=== PATIENT | male | born 1995 | race Caucasian/White ===

== ENCOUNTER 2017-01-28 23:19 | Emergency (ER) | payer OTHER ==
[~2017-01-28] VITALS: Ht 167.6 cm; Wt 100.0 kg
[~2017-01-28 23:19] MED LIST: DIVA500T35 PO; PALI234D IM
[2017-01-29] MEDS ORDERED: BUPIVACAINE HCL/PF 0.25% 10 ML VIAL INJ ONE (03:00)
[2017-01-29] MEDS ORDERED: BACITRACIN 0.9 GM PACKET OINTMENT TP ONE (03:00)
[2017-01-29 03:04] VITALS: BP 109/62
== END 2017-01-29 04:11 | disposition home or self-care (01) ==
LOC: EMS 23:21
DX: S01.111A Laceration without foreign body of right eyelid and periocular area, initial encounter (principal); F20.0 Paranoid schizophrenia; R45.851 Suicidal ideations; Z88.8 Allergy status to other drugs, medicaments and biological substances; Y08.09XA Assault by strike by other specified type of sport equipment, initial encounter; Y92.89 Other specified places as the place of occurrence of the external cause; Y93.89 Activity, other specified; Y99.8 Other external cause status
CPT/HCPCS: 12013; 99284; J3490

== ENCOUNTER 2017-03-17 21:34 | Emergency (ER) | payer OTHER ==
[~2017-03-17] VITALS: Ht 165.1 cm; Wt 102.3 kg
[2017-03-17 22:19] LABS: BASOPHILS # (AUTO) 0.08 K/uL (0.00-0.20); BASOPHILS % (AUTO) 0.6 % (0.0-2.0); EOSINOPHILS % (AUTO) 1.62 % (1.0-6.0); HEMATOCRIT 48.5 % (41-53); HEMOGLOBIN 16.1 g/dL (13.5-17.5); LYMPHOCYTES # (AUTO) 1.7 K/uL (1.0-4.8); LYMPHOCYTES % (AUTO) 13.9 % (22.0-44.0); MEAN CORPUSCULAR HEMOGLOBIN 29.7 pg (26.0-34.0); MEAN CORPUSCULAR HGB CONC 33.2 G/dL (31.0-37.0); MEAN CORPUSCULAR VOLUME 89 fL (80-100); MONOCYTES # (AUTO) 0.7 K/uL (0.1-1.0); MONOCYTES % (AUTO) 5.3 % (2.0-9.0); NEUTROPHILS # (AUTO) 9.6 K/uL (1.8-7.7); NEUTROPHILS % (AUTO) 78.5 % (40.0-70.0); PLATELET COUNT (AUTO) 210 K/uL (150-450); RED BLOOD CELL COUNT(AUTO) 5.42 MIL/uL (4.50-5.90); RED CELL DISTRIBUTION WIDTH 14.1 % (11.5-14.5)
[2017-03-17 22:36] LABS: ANION GAP 9 mmol/L (8-16); CALCIUM, TOTAL 9.3 mg/dL (8.8-10.5); CARBON DIOXIDE 26 mmol/L (22-29); CHLORIDE 103 mmol/L (98-107); GLOMERULAR FILTR. RATE CALC > 60 mL/min (>60); GLUCOSE,RANDOM 104 mg/dL (70-110); POTASSIUM 4.2 mmol/L (3.5-5.1); SODIUM SERUM 138 mmol/L (136-145); UREA NITROGEN, BLOOD 13 mg/dL (7-18)
[2017-03-17 22:45] LABS: ALANINE AMINOTRANSFERASE 31 U/L (12-78); ALBUMIN 4.3 g/dL (3.4-5.0); ALKALINE PHOSPHATASE 75 U/L (46-116); ASPARTATE AMINOTRANSFERASE 20 U/L (15-37); BILIRUBIN,TOTAL 0.4 mg/dL (0.1-1.0); TOTAL PROTEIN, SERUM 7.9 g/dL (6.4-8.2)
[2017-03-17] MEDS ORDERED: HALOPERIDOL LACTATE 5 MG/ML VIAL IM ONE (22:45)
[2017-03-17 22:59] LABS: VALPROIC ACID 54 mcg/mL (50-100)
[2017-03-17 23:58] LABS: AMPHET/METH SCREEN,URINE NEGATIVE (NEGATIVE); BARBITURATE SCREEN, URINE NEGATIVE (NEGATIVE); BENZODIAZEPINES SCREEN,URINE NEGATIVE (NEGATIVE); CANNABINOID SCREEN,URINE POSITIVE (NEGATIVE); COCAINE SCREEN,URINE NEGATIVE (NEGATIVE); METHADONE SCREEN, URINE NEGATIVE (NEGATIVE); OPIATE SCREEN,URINE NEGATIVE (NEGATIVE)
[2017-03-18] LABS: PHENCYCLIDINE SCREEN,URINE NEGATIVE (NEGATIVE)
[2017-03-18 01:30] VITALS: BP 121/81
== END 2017-03-18 01:55 | disposition home or self-care (01) ==
LOC: EMS 21:36
DX: F20.9 Schizophrenia, unspecified (principal); M25.562 Pain in left knee; F12.10 Cannabis abuse, uncomplicated; Z88.8 Allergy status to other drugs, medicaments and biological substances
CPT/HCPCS: 36415; 73560; 80053; 80164; 80307; 85025; 96372; 99285; G0480; J0690; J1630

== ENCOUNTER 2017-04-09 10:02 | Inpatient (IN) | payer OTHER, MEDICAID ==
[~2017-04-09] VITALS: Ht 167.6 cm; Wt 95.9 kg
[2017-04-09] MEDS ORDERED: LITH300C3 PO (10:16)
[2017-04-09 10:36] LABS: BASOPHILS # (AUTO) 0.12 K/uL (0.00-0.20); BASOPHILS % (AUTO) 1.2 % (0.0-2.0); EOSINOPHILS # (AUTO) 0.07 K/uL (0.00-0.70); EOSINOPHILS % (AUTO) 0.75 % (1.0-6.0); HEMATOCRIT 50.3 % (41-53); HEMOGLOBIN 16.8 g/dL (13.5-17.5); LYMPHOCYTES % (AUTO) 19.9 % (22.0-44.0); MEAN CORPUSCULAR HEMOGLOBIN 29.6 pg (26.0-34.0); MEAN CORPUSCULAR HGB CONC 33.4 G/dL (31.0-37.0); MEAN CORPUSCULAR VOLUME 89 fL (80-100); MONOCYTES # (AUTO) 0.5 K/uL (0.1-1.0); NEUTROPHILS # (AUTO) 7.2 K/uL (1.8-7.7); NEUTROPHILS % (AUTO) 73.1 % (40.0-70.0); PLATELET COUNT (AUTO) 263 K/uL (150-450); RED BLOOD CELL COUNT(AUTO) 5.68 MIL/uL (4.50-5.90); RED CELL DISTRIBUTION WIDTH 13.6 % (11.5-14.5); WHITE BLOOD COUNT (AUTO) 9.9 K/uL (4.5-11.0)
[2017-04-09 10:54] LABS: ANION GAP 10 mmol/L (8-16); CALCIUM, TOTAL 9.5 mg/dL (8.8-10.5); CARBON DIOXIDE 26 mmol/L (22-29); CHLORIDE 102 mmol/L (98-107); CREATININE 0.97 mg/dL (0.60-1.30); GLOMERULAR FILTR. RATE CALC > 60 mL/min (>60); POTASSIUM 3.5 mmol/L (3.5-5.1); SODIUM SERUM 138 mmol/L (136-145); UREA NITROGEN, BLOOD 8 mg/dL (7-18)
[2017-04-09 10:59] LABS: ALANINE AMINOTRANSFERASE 34 U/L (12-78); ALBUMIN 4.3 g/dL (3.4-5.0); ASPARTATE AMINOTRANSFERASE 22 U/L (15-37); BILIRUBIN,TOTAL 0.2 mg/dL (0.1-1.0); TOTAL PROTEIN, SERUM 8.5 g/dL (6.4-8.2)
[2017-04-09 11:57] LABS: VALPROIC ACID < 3 mcg/mL (50-100)
[2017-04-09 12:07] LABS: LITHIUM < 0.20 mmol/L (0.60-1.20)
[2017-04-09] MEDS ORDERED: HALOPERIDOL LACTATE 5 MG/ML VIAL IM ONE (12:15)
[2017-04-09] MEDS ORDERED: DiphenhydrAMINE HCL 50 MG/ML VIAL IM ONE (12:15)
[2017-04-09] MEDS ORDERED: LORazepam 2 MG/ML VIAL IM ONE (12:15)
[2017-04-09] MEDS ORDERED: HALOPERIDOL 5 MG TABLET PO PRN (12:45)
[2017-04-09] MEDS ORDERED: ZOLPIDEM TARTRATE 10 MG TABLET PO PRN (12:45)
[2017-04-09 16:00] VITALS: BP 104/69
[2017-04-09] MEDS: NICOTINE 21 MG/24 HOUR PATCH TD SCH (17:02)
[2017-04-09] MEDS ORDERED: INFLUENZA VIRUS VACCINE QVS 2017-18 (3YR+)/PF 60 MCG/0.5 ML SYRINGE IM ONE (20:30)
[2017-04-10] MEDS ORDERED: PNEUMOCOCCAL VACCINE POLYVALENT 0.5 ML VIAL [PPSV23] IM ONE (02:30)
[2017-04-10 06:48] VITALS: BP 101/76
[2017-04-10] MEDS: NICOTINE 21 MG/24 HOUR PATCH TD SCH (08:27)
[2017-04-10 08:36] VITALS: BP 123/75
[2017-04-10 16:05] VITALS: BP 114/63
[2017-04-10] MEDS: PALIPERIDONE 6 MG ER TABLET PO SCH (20:37)
[2017-04-10] MEDS: DIVALPROEX SODIUM 500 MG ER TABLET PO SCH (20:38)
[2017-04-10] MEDS ORDERED: DIVALPROEX SODIUM 500 MG ER TABLET PO SCH (21:00)
[2017-04-11 05:56] VITALS: BP 123/81
[2017-04-11] MEDS: DIVALPROEX SODIUM 500 MG ER TABLET PO SCH ×2 (08:13→16:42)
[2017-04-11] MEDS: LITHIUM CARBONATE 300 MG CAPSULE PO SCH (08:13)
[2017-04-11] MEDS: PALIPERIDONE 6 MG ER TABLET PO SCH ×2 (08:13→20:34)
[2017-04-11] MEDS: NICOTINE 21 MG/24 HOUR PATCH TD SCH (08:13)
[2017-04-11 08:31] VITALS: BP 128/73
[2017-04-11] MEDS ORDERED: PALIPERIDONE PALMITATE 234 MG/1.5 ML SYRINGE IM SCH (09:00)
[2017-04-11 16:22] VITALS: BP 113/65
[2017-04-12 00:24] VITALS: BP 106/65
[2017-04-12 08:27] VITALS: BP 110/60
[2017-04-12] MEDS: NICOTINE 21 MG/24 HOUR PATCH TD SCH (08:34)
[2017-04-12] MEDS: PALIPERIDONE 6 MG ER TABLET PO SCH ×2 (08:34→20:28)
[2017-04-12] MEDS: DIVALPROEX SODIUM 500 MG ER TABLET PO SCH ×2 (08:34→16:22)
[2017-04-12] MEDS: LITHIUM CARBONATE 300 MG CAPSULE PO SCH (08:34)
[2017-04-12 16:11] VITALS: BP 123/88
[2017-04-13 00:55] VITALS: BP 112/61
[2017-04-13 08:39] VITALS: BP 110/75
[2017-04-13] MEDS: LITHIUM CARBONATE 300 MG CAPSULE PO SCH (09:15)
[2017-04-13] MEDS: DIVALPROEX SODIUM 500 MG ER TABLET PO SCH ×2 (09:15→16:52)
[2017-04-13] MEDS: NICOTINE 21 MG/24 HOUR PATCH TD SCH (09:15)
[2017-04-13] MEDS: PALIPERIDONE 6 MG ER TABLET PO SCH ×2 (09:15→20:19)
[2017-04-13 16:17] VITALS: BP 107/66
[2017-04-14 02:21] VITALS: BP 109/63
[2017-04-14 08:00] VITALS: BP 126/78
[2017-04-14] MEDS: LITHIUM CARBONATE 300 MG CAPSULE PO SCH (09:05)
[2017-04-14] MEDS: DIVALPROEX SODIUM 500 MG ER TABLET PO SCH ×2 (09:06→16:51)
[2017-04-14] MEDS: PALIPERIDONE 6 MG ER TABLET PO SCH ×2 (09:06→20:42)
[2017-04-14] MEDS: NICOTINE 21 MG/24 HOUR PATCH TD SCH (09:06)
[2017-04-14 16:17] VITALS: BP 105/71
[2017-04-15 00:29] VITALS: BP 107/68
[2017-04-15 08:00] VITALS: BP 108/55
[2017-04-15] MEDS: PALIPERIDONE 6 MG ER TABLET PO SCH ×2 (08:55→20:34)
[2017-04-15] MEDS: DIVALPROEX SODIUM 500 MG ER TABLET PO SCH ×2 (08:55→16:51)
[2017-04-15] MEDS: LITHIUM CARBONATE 300 MG CAPSULE PO SCH (08:55)
[2017-04-15] MEDS: NICOTINE 21 MG/24 HOUR PATCH TD SCH (08:56)
[2017-04-15 16:40] VITALS: BP 119/77
[2017-04-16 00:59] VITALS: BP 123/78
[2017-04-16 08:16] VITALS: BP 121/76
[2017-04-16] MEDS: LITHIUM CARBONATE 300 MG CAPSULE PO SCH (08:27)
[2017-04-16] MEDS: PALIPERIDONE 6 MG ER TABLET PO SCH ×2 (08:27→20:36)
[2017-04-16] MEDS: DIVALPROEX SODIUM 500 MG ER TABLET PO SCH ×2 (08:27→16:39)
[2017-04-16] MEDS: NICOTINE 21 MG/24 HOUR PATCH TD SCH (08:28)
[2017-04-16] MEDS: LORazepam 2 MG TABLET PO PRN (10:01)
[2017-04-16 16:09] VITALS: BP 137/82
[2017-04-17 01:39] VITALS: BP 123/69
[2017-04-17 08:46] VITALS: BP_SYST 106; BP_SYST 141; BP_DIAS 61; BP_DIAS 89
[2017-04-17] MEDS: DIVALPROEX SODIUM 500 MG ER TABLET PO SCH ×2 (09:17→16:40)
[2017-04-17] MEDS: NICOTINE 21 MG/24 HOUR PATCH TD SCH (09:18)
[2017-04-17] MEDS: LITHIUM CARBONATE 300 MG CAPSULE PO SCH (09:18)
[2017-04-17] MEDS: PALIPERIDONE 6 MG ER TABLET PO SCH ×2 (09:18→20:40)
[2017-04-17] MEDS: LORazepam 2 MG TABLET PO PRN (13:49)
[2017-04-17 16:17] VITALS: BP 137/83
[2017-04-18 07:28] VITALS: BP 132/80
[2017-04-18] MEDS: LITHIUM CARBONATE 300 MG CAPSULE PO SCH (08:30)
[2017-04-18] MEDS: DIVALPROEX SODIUM 500 MG ER TABLET PO SCH (08:30)
[2017-04-18] MEDS: PALIPERIDONE 6 MG ER TABLET PO SCH (08:30)
[2017-04-18] MEDS: NICOTINE 21 MG/24 HOUR PATCH TD SCH (08:31)
[2017-04-18 08:54] VITALS: BP 114/60
[2017-04-18] MEDS ORDERED: PALI6 PO ×2 (10:23)
[2017-04-18] MEDS ORDERED: DIVA500T52 PO (10:23)
[2017-04-18] MEDS ORDERED: LITH300C3 PO (10:23)
[2017-04-18] MEDS ORDERED: NICO-704 TD (10:23)
[2017-04-18] MEDS ORDERED: PALI234D IM (10:23)
== END 2017-04-18 12:20 | disposition home or self-care (01) | DRG 885 ==
LOC: EMS 10:03 → B2X 14:14
PROVIDERS: ADMIT Psychiatry & Neurology Psychiatry; ATTEND Psychiatry & Neurology Psychiatry
DX: F20.1 Disorganized schizophrenia (principal); R45.851 Suicidal ideations; E66.9 Obesity, unspecified; Z28.21 Immunization not carried out because of patient refusal; E78.5 Hyperlipidemia, unspecified; F12.90 Cannabis use, unspecified, uncomplicated; F17.200 Nicotine dependence, unspecified, uncomplicated; G47.33 Obstructive sleep apnea (adult) (pediatric); J45.909 Unspecified asthma, uncomplicated; R09.02 Hypoxemia; Z91.5 Personal history of self-harm; Z92.21 Personal history of antineoplastic chemotherapy; Z71.6 Tobacco abuse counseling; Z63.9 Problem related to primary support group, unspecified
CPT/HCPCS: 90471; 96372; 99285; G0480; J1200; J1630; J2060

== ENCOUNTER 2017-05-26 10:05 | Inpatient (IN) | payer OTHER, MEDICAID ==
[~2017-05-26] VITALS: Ht 167.6 cm; Wt 96.2 kg
[~2017-05-26 10:05] MED LIST changes: -DIVA500T35 PO; +DIVA500T52 PO; +LITH300C3 PO; +NICO-704 TD; +PALI6 PO
[2017-05-26 10:46] LABS: BASOPHILS % (AUTO) 0.8 % (0.0-2.0); EOSINOPHILS % (AUTO) 0.8 % (1.0-6.0); HEMATOCRIT 43.4 % (41-53); HEMOGLOBIN 14.8 g/dL (13.5-17.5); LYMPHOCYTES # (AUTO) 1.9 K/uL (1.0-4.8); LYMPHOCYTES % (AUTO) 17.3 % (22.0-44.0); MEAN CORPUSCULAR HEMOGLOBIN 30.2 pg (26.0-34.0); MEAN CORPUSCULAR HGB CONC 34.1 G/dL (31.0-37.0); MEAN CORPUSCULAR VOLUME 89 fL (80-100); MONOCYTES # (AUTO) 0.5 K/uL (0.1-1.0); MONOCYTES % (AUTO) 4.4 % (2.0-9.0); NEUTROPHILS # (AUTO) 8.4 K/uL (1.8-7.7); NEUTROPHILS % (AUTO) 76.7 % (40.0-70.0); PLATELET COUNT (AUTO) 246 K/uL (150-450); RED CELL DISTRIBUTION WIDTH 14.3 % (11.5-14.5)
[2017-05-26 11:06] LABS: ALANINE AMINOTRANSFERASE 95 U/L (12-78); ALBUMIN 3.7 g/dL (3.4-5.0); ALKALINE PHOSPHATASE 102 U/L (46-116); ANION GAP 9 mmol/L (8-16); ASPARTATE AMINOTRANSFERASE 47 U/L (15-37); BILIRUBIN,TOTAL 0.2 mg/dL (0.1-1.0); CALCIUM, TOTAL 8.6 mg/dL (8.8-10.5); CARBON DIOXIDE 25 mmol/L (22-29); CHLORIDE 102 mmol/L (98-107); CREATININE 1.08 mg/dL (0.60-1.30); GLOMERULAR FILTR. RATE CALC > 60 mL/min (>60); GLUCOSE,RANDOM 135 mg/dL (70-110); SODIUM SERUM 136 mmol/L (136-145); TOTAL PROTEIN, SERUM 7.3 g/dL (6.4-8.2); UREA NITROGEN, BLOOD 6 mg/dL (7-18)
[2017-05-26 11:14] LABS: SALICYLATE 4.4 mg/dL (2.8-20.0)
[2017-05-26 11:16] LABS: POTASSIUM 2.7 mmol/L (3.5-5.1)
[2017-05-26 11:18] LABS: ACETAMINOPHEN < 2 mcg/mL (10-30)
[2017-05-26 11:26] LABS: LITHIUM < 0.20 mmol/L (0.60-1.20)
[2017-05-26] MEDS ORDERED: POTASSIUM CHLORIDE 20 MEQ ER TABLET PO ONE ×2 (11:30→21:30)
[2017-05-26] MEDS ORDERED: LORazepam 2 MG TABLET PO PRN (11:30)
[2017-05-26] MEDS ORDERED: HALOPERIDOL 5 MG TABLET PO PRN ×2 (11:30→13:00)
[2017-05-26] MEDS ORDERED: ZOLPIDEM TARTRATE 10 MG TABLET PO PRN ×2 (11:30→13:00)
[2017-05-26 12:18] LABS: AMPHET/METH SCREEN,URINE NEGATIVE (NEGATIVE); BARBITURATE SCREEN, URINE NEGATIVE (NEGATIVE); BENZODIAZEPINES SCREEN,URINE NEGATIVE (NEGATIVE); CANNABINOID SCREEN,URINE POSITIVE (NEGATIVE); COCAINE SCREEN,URINE NEGATIVE (NEGATIVE); METHADONE SCREEN, URINE NEGATIVE (NEGATIVE); OPIATE SCREEN,URINE NEGATIVE (NEGATIVE)
[2017-05-26 12:19] LABS: PHENCYCLIDINE SCREEN,URINE NEGATIVE (NEGATIVE)
[2017-05-26] MEDS ORDERED: LORazepam 2 MG/ML VIAL ONE (12:37)
[2017-05-26] MEDS ORDERED: DiphenhydrAMINE HCL 50 MG/ML VIAL ONE (12:37)
[2017-05-26] MEDS ORDERED: HALOPERIDOL LACTATE 5 MG/ML VIAL ONE (12:37)
[2017-05-26] MEDS ORDERED: LORazepam 2 MG/ML VIAL IM ONE (13:00)
[2017-05-26] MEDS ORDERED: DiphenhydrAMINE HCL 50 MG/ML VIAL IM ONE (13:00)
[2017-05-26] MEDS ORDERED: HALOPERIDOL LACTATE 5 MG/ML VIAL IM ONE (13:00)
[2017-05-26 20:21] VITALS: BP 123/80
[2017-05-26] MEDS: LITHIUM CARBONATE 300 MG CAPSULE PO SCH ×2 (21:00→22:33)
[2017-05-27] MEDS: PALIPERIDONE 6 MG ER TABLET PO SCH ×2 (07:54→16:07)
[2017-05-27] MEDS: HALOPERIDOL 5 MG TABLET PO SCH ×2 (07:54→16:07)
[2017-05-27 08:06] LABS: ALANINE AMINOTRANSFERASE 92 U/L (12-78); ALBUMIN 3.3 g/dL (3.4-5.0); ALKALINE PHOSPHATASE 90 U/L (46-116); ANION GAP 8 mmol/L (8-16); ASPARTATE AMINOTRANSFERASE 39 U/L (15-37); BILIRUBIN,TOTAL 0.3 mg/dL (0.1-1.0); CALCIUM, TOTAL 8.9 mg/dL (8.8-10.5); CARBON DIOXIDE 27 mmol/L (22-29); CHLORIDE 102 mmol/L (98-107); CHOLESTEROL 141 mg/dL (131-200); CREATINE KINASE MB 0.9 ng/mL (0-5); CREATINE KINASE, TOTAL 226 U/L (39-308); CREATININE 1.11 mg/dL (0.60-1.30); GLOMERULAR FILTR. RATE CALC > 60 mL/min (>60); GLUCOSE,RANDOM 86 mg/dL (70-110); HDL CHOLESTEROL 28 mg/dL (40-60); LDL CHOL (CALC.) 86 mg/dL (0-130); POTASSIUM 4.4 mmol/L (3.5-5.1); SODIUM SERUM 137 mmol/L (136-145); TOTAL PROTEIN, SERUM 6.8 g/dL (6.4-8.2); TRIGLYCERIDES 136 mg/dL (15-150); UREA NITROGEN, BLOOD 9 mg/dL (7-18)
[2017-05-27] MEDS ORDERED: ONDANSETRON HCL 4 MG TABLET PO PRN (10:00)
[2017-05-27 11:00] VITALS: BP 137/77
[2017-05-27 17:00] VITALS: BP 121/73
[2017-05-27] MEDS: LITHIUM CARBONATE 300 MG CAPSULE PO SCH (20:23)
[2017-05-28] MEDS: PALIPERIDONE 6 MG ER TABLET PO SCH ×2 (08:36→15:59)
[2017-05-28] MEDS: HALOPERIDOL 5 MG TABLET PO SCH ×2 (08:37→15:59)
[2017-05-28 09:00] VITALS: BP 155/101
[2017-05-28 17:22] VITALS: BP 131/76
[2017-05-28] MEDS: LITHIUM CARBONATE 300 MG CAPSULE PO SCH (20:19)
[2017-05-29 08:07] VITALS: BP 148/88
[2017-05-29] MEDS: HALOPERIDOL 5 MG TABLET PO SCH ×2 (08:24→16:27)
[2017-05-29] MEDS: PALIPERIDONE 6 MG ER TABLET PO SCH ×2 (08:24→16:26)
[2017-05-29] MEDS: NICOTINE 21 MG/24 HOUR PATCH TD SCH (12:00)
[2017-05-29] MEDS ORDERED: CloNIDine HCL 0.1 MG TABLET PO PRN (13:00)
[2017-05-29 17:30] VITALS: BP 137/74
[2017-05-29] MEDS: LITHIUM CARBONATE 300 MG CAPSULE PO SCH (20:10)
[2017-05-30 00:05] VITALS: BP 132/90
[2017-05-30 08:00] VITALS: BP 124/74
[2017-05-30] MEDS: NICOTINE 21 MG/24 HOUR PATCH TD SCH (09:05)
[2017-05-30] MEDS: HALOPERIDOL 5 MG TABLET PO SCH ×2 (09:05→15:58)
[2017-05-30] MEDS: PALIPERIDONE 6 MG ER TABLET PO SCH ×2 (09:05→15:57)
[2017-05-30] MEDS: LORazepam 2 MG TABLET PO PRN ×2 (16:27→22:33)
[2017-05-30 17:16] VITALS: BP 144/88
[2017-05-30] MEDS: LITHIUM CARBONATE 300 MG CAPSULE PO SCH (20:20)
[2017-05-31 06:20] LABS: ALANINE AMINOTRANSFERASE 154 U/L (12-78); ALBUMIN 3.6 g/dL (3.4-5.0); ALKALINE PHOSPHATASE 99 U/L (46-116); ANION GAP 7 mmol/L (8-16); ASPARTATE AMINOTRANSFERASE 54 U/L (15-37); BILIRUBIN,TOTAL 0.2 mg/dL (0.1-1.0); CALCIUM, TOTAL 9.1 mg/dL (8.8-10.5); CARBON DIOXIDE 27 mmol/L (22-29); CHLORIDE 101 mmol/L (98-107); GLOMERULAR FILTR. RATE CALC > 60 mL/min (>60); GLUCOSE,RANDOM 93 mg/dL (70-110); POTASSIUM 4.6 mmol/L (3.5-5.1); SODIUM SERUM 135 mmol/L (136-145); TOTAL PROTEIN, SERUM 7.2 g/dL (6.4-8.2); UREA NITROGEN, BLOOD 11 mg/dL (7-18)
[2017-05-31] MEDS: NICOTINE 21 MG/24 HOUR PATCH TD SCH (08:50)
[2017-05-31] MEDS: HALOPERIDOL 5 MG TABLET PO SCH ×2 (08:51→16:51)
[2017-05-31] MEDS: PALIPERIDONE 6 MG ER TABLET PO SCH ×2 (08:51→16:51)
[2017-05-31 09:00] VITALS: BP 121/76
[2017-05-31] MEDS: LORazepam 2 MG TABLET PO PRN (14:17)
[2017-05-31] MEDS: LITHIUM CARBONATE 300 MG CAPSULE PO SCH (20:19)
[2017-05-31 21:48] VITALS: BP 132/76
[2017-06-01 08:28] VITALS: BP 133/84
[2017-06-01] MEDS: HALOPERIDOL 5 MG TABLET PO SCH ×2 (08:29→16:44)
[2017-06-01] MEDS: PALIPERIDONE 6 MG ER TABLET PO SCH ×2 (08:30→16:44)
[2017-06-01] MEDS: NICOTINE 21 MG/24 HOUR PATCH TD SCH (08:31)
[2017-06-01] MEDS: LORazepam 2 MG TABLET PO PRN (15:20)
[2017-06-01 17:55] VITALS: BP 128/78
[2017-06-01] MEDS: LITHIUM CARBONATE 300 MG CAPSULE PO SCH (20:04)
[2017-06-02 06:53] VITALS: BP 139/77
[2017-06-02] MEDS: LORazepam 2 MG TABLET PO PRN ×2 (06:53→14:13)
[2017-06-02 08:14] VITALS: BP 153/89
[2017-06-02] MEDS: NICOTINE 21 MG/24 HOUR PATCH TD SCH (08:32)
[2017-06-02] MEDS: HALOPERIDOL 5 MG TABLET PO SCH ×2 (08:32→17:32)
[2017-06-02] MEDS: PALIPERIDONE 6 MG ER TABLET PO SCH ×2 (08:32→17:32)
[2017-06-02 19:59] VITALS: BP 124/68
[2017-06-02] MEDS: LITHIUM CARBONATE 300 MG CAPSULE PO SCH (20:25)
[2017-06-03] MEDS: PALIPERIDONE 6 MG ER TABLET PO SCH ×2 (09:48→16:00)
[2017-06-03] MEDS: HALOPERIDOL 5 MG TABLET PO SCH ×2 (09:48→16:00)
[2017-06-03] MEDS: NICOTINE 21 MG/24 HOUR PATCH TD SCH (09:49)
[2017-06-03 09:58] VITALS: BP 124/97
[2017-06-03] MEDS: LORazepam 2 MG TABLET PO PRN (16:00)
[2017-06-03 19:09] VITALS: BP 136/86
[2017-06-03] MEDS: LITHIUM CARBONATE 300 MG CAPSULE PO SCH (20:20)
[2017-06-04 06:33] LABS: ALANINE AMINOTRANSFERASE 133 U/L (12-78); ALBUMIN 3.6 g/dL (3.4-5.0); ALKALINE PHOSPHATASE 98 U/L (46-116); ANION GAP 4 mmol/L (8-16); ASPARTATE AMINOTRANSFERASE 37 U/L (15-37); BILIRUBIN,TOTAL 0.2 mg/dL (0.1-1.0); CALCIUM, TOTAL 9.1 mg/dL (8.8-10.5); CARBON DIOXIDE 31 mmol/L (22-29); CHLORIDE 105 mmol/L (98-107); CREATININE 0.89 mg/dL (0.60-1.30); GLOMERULAR FILTR. RATE CALC > 60 mL/min (>60); GLUCOSE,RANDOM 90 mg/dL (70-110); POTASSIUM 5.1 mmol/L (3.5-5.1); SODIUM SERUM 140 mmol/L (136-145); TOTAL PROTEIN, SERUM 6.7 g/dL (6.4-8.2); UREA NITROGEN, BLOOD 11 mg/dL (7-18)
[2017-06-04] MEDS: PALIPERIDONE 6 MG ER TABLET PO SCH (08:08)
[2017-06-04] MEDS: HALOPERIDOL 5 MG TABLET PO SCH (08:10)
[2017-06-04] MEDS: NICOTINE 21 MG/24 HOUR PATCH TD SCH (08:15)
[2017-06-04] MEDS ORDERED: PALIPERIDONE PALMITATE 234 MG/1.5 ML SYRINGE IM SCH (09:00)
[2017-06-04] MEDS ORDERED: HALO5 PO (09:53)
[2017-06-04 13:08] VITALS: BP 136/82
== END 2017-06-04 13:30 | disposition home or self-care (01) | DRG 885 ==
LOC: EMS 10:07 → 3EX 16:48
PROVIDERS: ADMIT Psychiatry & Neurology Psychiatry; ATTEND Psychiatry & Neurology Psychiatry
DX: F20.1 Disorganized schizophrenia (principal); R45.851 Suicidal ideations; F20.0 Paranoid schizophrenia; Z91.19 Patient's noncompliance with other medical treatment and regimen; E78.5 Hyperlipidemia, unspecified; F17.200 Nicotine dependence, unspecified, uncomplicated; E87.6 Hypokalemia; F12.90 Cannabis use, unspecified, uncomplicated; F32.9 Major depressive disorder, single episode, unspecified; G47.33 Obstructive sleep apnea (adult) (pediatric); I10 Essential (primary) hypertension; J45.909 Unspecified asthma, uncomplicated; Z91.5 Personal history of self-harm; K29.70 Gastritis, unspecified, without bleeding; R79.89 Other specified abnormal findings of blood chemistry; Z88.8 Allergy status to other drugs, medicaments and biological substances
CPT/HCPCS: 80074; 83735; 87081; 93005; 96372; 99285; G0480; G0481; J1200; J1630; J2060

== ENCOUNTER 2017-06-06 15:45 | Inpatient (IN) | payer OTHER, MEDICAID ==
[~2017-06-06] VITALS: Ht 167.6 cm; Wt 95.7 kg
[~2017-06-06 15:45] MED LIST changes: -DIVA500T52 PO; +HALO5 PO; -NICO-704 TD
[2017-06-06 16:14] LABS: BASOPHILS % (AUTO) 0.4 % (0.0-2.0); EOSINOPHILS % (AUTO) 0.5 % (1.0-6.0); HEMATOCRIT 45.5 % (41-53); HEMOGLOBIN 15.4 g/dL (13.5-17.5); LYMPHOCYTES # (AUTO) 2.8 K/uL (1.0-4.8); LYMPHOCYTES % (AUTO) 25.8 % (22.0-44.0); MEAN CORPUSCULAR HEMOGLOBIN 30.3 pg (26.0-34.0); MEAN CORPUSCULAR HGB CONC 33.9 G/dL (31.0-37.0); MEAN CORPUSCULAR VOLUME 89 fL (80-100); MONOCYTES # (AUTO) 0.5 K/uL (0.1-1.0); MONOCYTES % (AUTO) 4.8 % (2.0-9.0); NEUTROPHILS # (AUTO) 7.3 K/uL (1.8-7.7); NEUTROPHILS % (AUTO) 68.5 % (40.0-70.0); PLATELET COUNT (AUTO) 262 K/uL (150-450); RED BLOOD CELL COUNT(AUTO) 5.09 MIL/uL (4.50-5.90); RED CELL DISTRIBUTION WIDTH 13.9 % (11.5-14.5)
[2017-06-06 16:29] LABS: ANION GAP 7 mmol/L (8-16); CALCIUM, TOTAL 8.9 mg/dL (8.8-10.5); CARBON DIOXIDE 28 mmol/L (22-29); CHLORIDE 101 mmol/L (98-107); CREATININE 0.93 mg/dL (0.60-1.30); GLOMERULAR FILTR. RATE CALC > 60 mL/min (>60); GLUCOSE,RANDOM 143 mg/dL (70-110); POTASSIUM 3.6 mmol/L (3.5-5.1); SODIUM SERUM 136 mmol/L (136-145); UREA NITROGEN, BLOOD 10 mg/dL (7-18)
[2017-06-06 16:34] LABS: ALANINE AMINOTRANSFERASE 100 U/L (12-78); ALBUMIN 3.9 g/dL (3.4-5.0); ALKALINE PHOSPHATASE 114 U/L (46-116); ASPARTATE AMINOTRANSFERASE 24 U/L (15-37); BILIRUBIN,TOTAL 0.2 mg/dL (0.1-1.0); TOTAL PROTEIN, SERUM 7.7 g/dL (6.4-8.2)
[2017-06-06 16:59] LABS: AMPHET/METH SCREEN,URINE NEGATIVE (NEGATIVE); BARBITURATE SCREEN, URINE NEGATIVE (NEGATIVE); BENZODIAZEPINES SCREEN,URINE NEGATIVE (NEGATIVE); CANNABINOID SCREEN,URINE POSITIVE (NEGATIVE); COCAINE SCREEN,URINE NEGATIVE (NEGATIVE); METHADONE SCREEN, URINE NEGATIVE (NEGATIVE); OPIATE SCREEN,URINE NEGATIVE (NEGATIVE)
[2017-06-06 16:59] LABS: ACETAMINOPHEN < 2 mcg/mL (10-30)
[2017-06-06 17:09] LABS: LITHIUM < 0.20 mmol/L (0.60-1.20)
[2017-06-06 17:10] LABS: PHENCYCLIDINE SCREEN,URINE NEGATIVE (NEGATIVE)
[2017-06-06 17:16] LABS: SALICYLATE 3.4 mg/dL (2.8-20.0)
[2017-06-06] MEDS ORDERED: ZOLPIDEM TARTRATE 10 MG TABLET PO PRN (19:45)
[2017-06-06] MEDS ORDERED: HALOPERIDOL 5 MG TABLET PO PRN (19:45)
[2017-06-06 22:10] VITALS: BP 140/95
[2017-06-06] MEDS ORDERED: INFLUENZA VIRUS VACCINE QVS 2017-18 (3YR+)/PF 60 MCG/0.5 ML SYRINGE IM ONE (22:45)
[2017-06-07 06:58] LABS: CHOL/HDL RATIO 5.9 (4.2-7.3)
[2017-06-07] MEDS: LORazepam 2 MG TABLET PO PRN (09:25)
[2017-06-07 10:39] VITALS: BP 128/68
[2017-06-07] MEDS: PALIPERIDONE 6 MG ER TABLET PO SCH (16:09)
[2017-06-07] MEDS: HALOPERIDOL 5 MG TABLET PO SCH (16:11)
[2017-06-07 17:00] VITALS: BP 122/68
[2017-06-08] MEDS: PALIPERIDONE 6 MG ER TABLET PO SCH ×2 (08:55→15:55)
[2017-06-08] MEDS: LITHIUM CARBONATE 300 MG CAPSULE PO SCH (08:55)
[2017-06-08] MEDS: HALOPERIDOL 5 MG TABLET PO SCH ×2 (08:55→15:55)
[2017-06-08 09:15] VITALS: BP 129/68
[2017-06-08] MEDS: LORazepam 2 MG TABLET PO PRN (15:56)
[2017-06-08 16:40] VITALS: BP 148/82
[2017-06-09 08:00] VITALS: BP 133/87
[2017-06-09] MEDS: LITHIUM CARBONATE 300 MG CAPSULE PO SCH (09:07)
[2017-06-09] MEDS: PALIPERIDONE 6 MG ER TABLET PO SCH ×2 (09:07→16:46)
[2017-06-09] MEDS: HALOPERIDOL 5 MG TABLET PO SCH ×2 (09:08→16:46)
[2017-06-09] MEDS: LORazepam 2 MG TABLET PO PRN ×2 (09:09→17:40)
[2017-06-09 17:39] VITALS: BP 136/80
[2017-06-10] MEDS: LITHIUM CARBONATE 300 MG CAPSULE PO SCH (08:31)
[2017-06-10] MEDS: PALIPERIDONE 6 MG ER TABLET PO SCH ×2 (08:31→16:32)
[2017-06-10] MEDS: HALOPERIDOL 5 MG TABLET PO SCH ×2 (08:31→16:32)
[2017-06-10 09:00] VITALS: BP 143/96
[2017-06-10] MEDS: LORazepam 2 MG TABLET PO PRN (15:50)
[2017-06-10 16:21] VITALS: BP 114/69
[2017-06-10] MEDS ORDERED: HALOPERIDOL 5 MG TABLET PO ONE (17:30)
[2017-06-11] MEDS: LITHIUM CARBONATE 300 MG CAPSULE PO SCH (08:18)
[2017-06-11] MEDS: HALOPERIDOL 5 MG TABLET PO SCH ×2 (08:18→16:43)
[2017-06-11] MEDS: PALIPERIDONE 6 MG ER TABLET PO SCH ×2 (08:19→16:43)
[2017-06-11] MEDS ORDERED: HALOPERIDOL 5 MG TABLET PO SCH (09:00)
[2017-06-11 09:49] VITALS: BP 136/81
[2017-06-11] MEDS ORDERED: BISACODYL 5 MG EC TABLET PO PRN (12:00)
[2017-06-11] MEDS: LORazepam 2 MG TABLET PO PRN (16:42)
[2017-06-11 17:08] VITALS: BP 124/80
[2017-06-12] MEDS: LITHIUM CARBONATE 300 MG CAPSULE PO SCH (08:41)
[2017-06-12] MEDS: HALOPERIDOL 5 MG TABLET PO SCH ×2 (08:42→17:05)
[2017-06-12] MEDS: PALIPERIDONE 6 MG ER TABLET PO SCH ×2 (08:42→17:05)
[2017-06-12 09:10] VITALS: BP 147/88
[2017-06-12] MEDS: LORazepam 2 MG TABLET PO PRN (14:27)
[2017-06-12 17:42] VITALS: BP 133/71
[2017-06-13 07:10] VITALS: BP 128/76
[2017-06-13 07:26] LABS: LITHIUM < 0.20 mmol/L (0.60-1.20)
[2017-06-13] MEDS: LORazepam 2 MG TABLET PO PRN (07:28)
[2017-06-13 07:29] VITALS: BP 126/79
[2017-06-13 08:01] LABS: ALANINE AMINOTRANSFERASE 118 U/L (12-78); ALBUMIN 3.9 g/dL (3.4-5.0); ALKALINE PHOSPHATASE 117 U/L (46-116); ANION GAP 10 mmol/L (8-16); ASPARTATE AMINOTRANSFERASE 36 U/L (15-37); BILIRUBIN,TOTAL 0.2 mg/dL (0.1-1.0); CALCIUM, TOTAL 9.4 mg/dL (8.8-10.5); CARBON DIOXIDE 27 mmol/L (22-29); CHLORIDE 103 mmol/L (98-107); CREATINE KINASE, TOTAL 55 U/L (39-308); CREATININE 0.99 mg/dL (0.60-1.30); GLOMERULAR FILTR. RATE CALC > 60 mL/min (>60); GLUCOSE,RANDOM 86 mg/dL (70-110); POTASSIUM 4.6 mmol/L (3.5-5.1); SODIUM SERUM 140 mmol/L (136-145); TOTAL PROTEIN, SERUM 7.9 g/dL (6.4-8.2); UREA NITROGEN, BLOOD 16 mg/dL (7-18)
[2017-06-13] MEDS: PALIPERIDONE 6 MG ER TABLET PO SCH (08:14)
[2017-06-13] MEDS: LITHIUM CARBONATE 300 MG CAPSULE PO SCH (08:14)
[2017-06-13] MEDS: HALOPERIDOL 5 MG TABLET PO SCH (08:15)
[2017-06-13 09:10] VITALS: BP 119/65
== END 2017-06-13 15:45 | disposition home or self-care (01) | DRG 885 ==
LOC: EMS 15:46 → 3EX 20:22
PROVIDERS: ADMIT Psychiatry & Neurology Psychiatry; ATTEND Psychiatry & Neurology Psychiatry
PROC: 3E0234Z Introduction of Serum, Toxoid and Vaccine into Muscle, Percutaneous Approach (ICD-10-PCS; principal; 2017-06-06)
DX: F20.0 Paranoid schizophrenia (principal); R45.851 Suicidal ideations; E78.1 Pure hyperglyceridemia; E78.5 Hyperlipidemia, unspecified; F12.90 Cannabis use, unspecified, uncomplicated; F17.200 Nicotine dependence, unspecified, uncomplicated; G47.33 Obstructive sleep apnea (adult) (pediatric); J45.909 Unspecified asthma, uncomplicated; K59.00 Constipation, unspecified; K29.70 Gastritis, unspecified, without bleeding; Z23 Encounter for immunization
CPT/HCPCS: 83735; 87081; 93005; 99285; G0480; G0481

== ENCOUNTER 2017-06-20 23:16 | Inpatient (IN) | payer OTHER, MEDICAID ==
[~2017-06-20] VITALS: Ht 167.6 cm; Wt 96.7 kg
[2017-06-20] MEDS ORDERED: PANT40TA25 PO (23:23)
[2017-06-20 23:43] LABS: BASOPHILS % (AUTO) 0.6 % (0.0-2.0); EOSINOPHILS % (AUTO) 1.7 % (1.0-6.0); HEMATOCRIT 45.2 % (41-53); HEMOGLOBIN 15.3 g/dL (13.5-17.5); LYMPHOCYTES # (AUTO) 2.2 K/uL (1.0-4.8); LYMPHOCYTES % (AUTO) 19.9 % (22.0-44.0); MEAN CORPUSCULAR HEMOGLOBIN 29.5 pg (26.0-34.0); MEAN CORPUSCULAR HGB CONC 33.9 G/dL (31.0-37.0); MEAN CORPUSCULAR VOLUME 87 fL (80-100); MONOCYTES # (AUTO) 0.8 K/uL (0.1-1.0); MONOCYTES % (AUTO) 6.9 % (2.0-9.0); NEUTROPHILS # (AUTO) 7.8 K/uL (1.8-7.7); NEUTROPHILS % (AUTO) 70.9 % (40.0-70.0); PLATELET COUNT (AUTO) 279 K/uL (150-450); RED BLOOD CELL COUNT(AUTO) 5.19 MIL/uL (4.50-5.90); RED CELL DISTRIBUTION WIDTH 14.4 % (11.5-14.5)
[2017-06-20 23:55] LABS: ANION GAP 9 mmol/L (8-16); CALCIUM, TOTAL 9.2 mg/dL (8.8-10.5); CARBON DIOXIDE 24 mmol/L (22-29); CHLORIDE 105 mmol/L (98-107); CREATININE 0.93 mg/dL (0.60-1.30); GLOMERULAR FILTR. RATE CALC > 60 mL/min (>60); GLUCOSE,RANDOM 93 mg/dL (70-110); POTASSIUM 3.8 mmol/L (3.5-5.1); SODIUM SERUM 138 mmol/L (136-145); UREA NITROGEN, BLOOD 6 mg/dL (7-18)
[2017-06-20 23:58] LABS: ACETAMINOPHEN < 2 mcg/mL (10-30); ALANINE AMINOTRANSFERASE 42 U/L (12-78); ALBUMIN 3.9 g/dL (3.4-5.0); ALKALINE PHOSPHATASE 107 U/L (46-116); ASPARTATE AMINOTRANSFERASE 20 U/L (15-37); BILIRUBIN,TOTAL 0.2 mg/dL (0.1-1.0); TOTAL PROTEIN, SERUM 7.6 g/dL (6.4-8.2)
[2017-06-20 23:59] LABS: SALICYLATE 4.6 mg/dL (2.8-20.0)
[2017-06-21 00:07] LABS: LITHIUM < 0.20 mmol/L (0.60-1.20)
[2017-06-21 01:51] LABS: AMPHET/METH SCREEN,URINE NEGATIVE (NEGATIVE); BARBITURATE SCREEN, URINE NEGATIVE (NEGATIVE); BENZODIAZEPINES SCREEN,URINE NEGATIVE (NEGATIVE); CANNABINOID SCREEN,URINE POSITIVE (NEGATIVE); COCAINE SCREEN,URINE NEGATIVE (NEGATIVE); METHADONE SCREEN, URINE NEGATIVE (NEGATIVE); OPIATE SCREEN,URINE NEGATIVE (NEGATIVE)
[2017-06-21 01:52] LABS: PHENCYCLIDINE SCREEN,URINE NEGATIVE (NEGATIVE)
[2017-06-21] MEDS ORDERED: ZOLPIDEM TARTRATE 10 MG TABLET PO PRN (02:30)
[2017-06-21] MEDS ORDERED: HALOPERIDOL 5 MG TABLET PO PRN (02:30)
[2017-06-21 04:55] VITALS: BP 121/64
[2017-06-21 09:08] VITALS: BP 118/54
[2017-06-21] MEDS: HALOPERIDOL 5 MG TABLET PO SCH (17:30)
[2017-06-21] MEDS: PALIPERIDONE 6 MG ER TABLET PO SCH (17:30)
[2017-06-21 18:30] VITALS: BP 123/80
[2017-06-22] MEDS: LITHIUM CARBONATE 300 MG CAPSULE PO SCH (08:13)
[2017-06-22] MEDS: PALIPERIDONE 6 MG ER TABLET PO SCH ×2 (08:13→17:46)
[2017-06-22] MEDS: HALOPERIDOL 5 MG TABLET PO SCH ×2 (08:13→17:47)
[2017-06-22] MEDS: IBUPROFEN 400 MG TABLET PO PRN (08:14)
[2017-06-22 08:15] VITALS: BP 136/64
[2017-06-22] MEDS: LORazepam 2 MG TABLET PO PRN ×2 (08:15→13:34)
[2017-06-22 08:33] LABS: CHOL/HDL RATIO 6.8 (4.2-7.3)
[2017-06-22 18:17] VITALS: BP 133/73
[2017-06-23 08:30] VITALS: BP 114/72
[2017-06-23 09:20] VITALS: BP 114/72
[2017-06-23] MEDS: HALOPERIDOL 5 MG TABLET PO SCH (09:25)
[2017-06-23] MEDS: PALIPERIDONE 6 MG ER TABLET PO SCH ×2 (09:25→16:08)
[2017-06-23] MEDS: LITHIUM CARBONATE 300 MG CAPSULE PO SCH (09:25)
[2017-06-23] MEDS: IBUPROFEN 400 MG TABLET PO PRN (09:26)
[2017-06-23] MEDS: LORazepam 2 MG TABLET PO PRN ×2 (09:26→16:07)
[2017-06-23] MEDS ORDERED: NICOTINE 21 MG/24 HOUR PATCH TD ONE (10:00)
[2017-06-23] MEDS: HALOPERIDOL 10 MG TABLET PO SCH (16:08)
[2017-06-23 20:10] VITALS: BP 138/77
[2017-06-24] MEDS: PALIPERIDONE 6 MG ER TABLET PO SCH ×2 (11:08→16:03)
[2017-06-24] MEDS: OMEGA-3/DHA/EPA/FISH OIL 1,000 MG CAPSULE PO SCH (11:08)
[2017-06-24] MEDS: HALOPERIDOL 10 MG TABLET PO SCH ×2 (11:08→16:03)
[2017-06-24] MEDS: LITHIUM CARBONATE 300 MG CAPSULE PO SCH (11:09)
[2017-06-24 15:28] VITALS: BP 126/73
[2017-06-24] MEDS: LORazepam 2 MG TABLET PO PRN (16:03)
[2017-06-24] MEDS: IBUPROFEN 400 MG TABLET PO PRN (16:03)
[2017-06-24 16:05] VITALS: BP 130/79
[2017-06-25] MEDS: OMEGA-3/DHA/EPA/FISH OIL 1,000 MG CAPSULE PO SCH (10:13)
[2017-06-25] MEDS: LITHIUM CARBONATE 300 MG CAPSULE PO SCH (10:13)
[2017-06-25] MEDS: PALIPERIDONE 6 MG ER TABLET PO SCH ×2 (10:13→17:47)
[2017-06-25] MEDS: HALOPERIDOL 10 MG TABLET PO SCH ×2 (10:13→17:47)
[2017-06-25] MEDS: IBUPROFEN 400 MG TABLET PO PRN (13:33)
[2017-06-25] MEDS: LORazepam 2 MG TABLET PO PRN (13:33)
[2017-06-25 16:30] VITALS: BP 129/77
[2017-06-26 08:00] VITALS: BP 144/93
[2017-06-26] MEDS: HALOPERIDOL 10 MG TABLET PO SCH ×2 (09:31→16:23)
[2017-06-26] MEDS: PALIPERIDONE 6 MG ER TABLET PO SCH ×2 (09:31→16:23)
[2017-06-26] MEDS: LITHIUM CARBONATE 300 MG CAPSULE PO SCH (09:31)
[2017-06-26] MEDS: LORazepam 2 MG TABLET PO PRN ×2 (09:32→20:36)
[2017-06-26] MEDS: IBUPROFEN 400 MG TABLET PO PRN ×2 (09:32→16:24)
[2017-06-26] MEDS: OMEGA-3/DHA/EPA/FISH OIL 1,000 MG CAPSULE PO SCH (09:32)
[2017-06-26 16:24] VITALS: BP 138/85
[2017-06-26 17:24] VITALS: BP 130/80
[2017-06-27 08:13] VITALS: BP 127/77
[2017-06-27] MEDS: OMEGA-3/DHA/EPA/FISH OIL 1,000 MG CAPSULE PO SCH (08:23)
[2017-06-27] MEDS: HALOPERIDOL 10 MG TABLET PO SCH (08:23)
[2017-06-27] MEDS: PALIPERIDONE 6 MG ER TABLET PO SCH (08:23)
[2017-06-27] MEDS: LITHIUM CARBONATE 300 MG CAPSULE PO SCH (08:24)
[2017-06-27] MEDS: IBUPROFEN 400 MG TABLET PO PRN (09:07)
[2017-06-27] MEDS: LORazepam 2 MG TABLET PO PRN (09:07)
[2017-06-27] MEDS ORDERED: HALO10 PO (10:06)
[2017-06-27] MEDS ORDERED: OMEG-135 PO (10:07)
[2017-07-02] MEDS ORDERED: PALIPERIDONE PALMITATE 234 MG/1.5 ML SYRINGE IM SCH (09:00)
== END 2017-06-27 14:30 | disposition home or self-care (01) | DRG 885 ==
LOC: EMS 23:17 → 3EI 06-21 01:30 → 3EX 06-21 01:30 → 3EI 06-26 22:10
PROVIDERS: ATTEND Psychiatry & Neurology Psychiatry
DX: F20.0 Paranoid schizophrenia (principal); M62.82 Rhabdomyolysis; E78.1 Pure hyperglyceridemia; E78.5 Hyperlipidemia, unspecified; F12.20 Cannabis dependence, uncomplicated; G47.33 Obstructive sleep apnea (adult) (pediatric); G89.29 Other chronic pain; J45.909 Unspecified asthma, uncomplicated; K21.9 Gastro-esophageal reflux disease without esophagitis; R00.0 Tachycardia, unspecified; T39.1X2A Poisoning by 4-Aminophenol derivatives, intentional self-harm, initial encounter; T40.7X2A Poisoning by cannabis (derivatives), intentional self-harm, initial encounter; Z88.5 Allergy status to narcotic agent; Z79.899 Other long term (current) drug therapy; Y92.89 Other specified places as the place of occurrence of the external cause
CPT/HCPCS: 87081; 93005; 99285; G0480; G0481

== ENCOUNTER 2017-06-30 08:57 | Inpatient (IN) | payer OTHER, MEDICAID ==
[~2017-06-30] VITALS: Ht 167.6 cm; Wt 97.0 kg
[~2017-06-30 08:57] MED LIST changes: +HALO10 PO; -HALO5 PO; +OMEG-135 PO
[2017-06-30] MEDS ORDERED: HALOPERIDOL 5 MG TABLET PO PRN (09:30)
[2017-06-30 09:44] LABS: BASOPHILS % (AUTO) 0.6 % (0.0-2.0); EOSINOPHILS % (AUTO) 0.5 % (1.0-6.0); HEMATOCRIT 45.3 % (41-53); HEMOGLOBIN 15.5 g/dL (13.5-17.5); LYMPHOCYTES # (AUTO) 1.7 K/uL (1.0-4.8); LYMPHOCYTES % (AUTO) 15.3 % (22.0-44.0); MEAN CORPUSCULAR HEMOGLOBIN 29.7 pg (26.0-34.0); MEAN CORPUSCULAR HGB CONC 34.2 G/dL (31.0-37.0); MEAN CORPUSCULAR VOLUME 87 fL (80-100); MONOCYTES # (AUTO) 0.7 K/uL (0.1-1.0); MONOCYTES % (AUTO) 6.5 % (2.0-9.0); NEUTROPHILS # (AUTO) 8.5 K/uL (1.8-7.7); NEUTROPHILS % (AUTO) 77.1 % (40.0-70.0); PLATELET COUNT (AUTO) 250 K/uL (150-450); RED BLOOD CELL COUNT(AUTO) 5.22 MIL/uL (4.50-5.90); RED CELL DISTRIBUTION WIDTH 14.2 % (11.5-14.5)
[2017-06-30 09:56] LABS: AMPHET/METH SCREEN,URINE NEGATIVE (NEGATIVE); BARBITURATE SCREEN, URINE NEGATIVE (NEGATIVE); BENZODIAZEPINES SCREEN,URINE NEGATIVE (NEGATIVE); CANNABINOID SCREEN,URINE POSITIVE (NEGATIVE); COCAINE SCREEN,URINE NEGATIVE (NEGATIVE); METHADONE SCREEN, URINE NEGATIVE (NEGATIVE); OPIATE SCREEN,URINE NEGATIVE (NEGATIVE)
[2017-06-30 09:57] LABS: PHENCYCLIDINE SCREEN,URINE NEGATIVE (NEGATIVE)
[2017-06-30 10:18] LABS: ANION GAP 9 mmol/L (8-16); CARBON DIOXIDE 26 mmol/L (22-29); CHLORIDE 107 mmol/L (98-107); CREATININE 0.82 mg/dL (0.60-1.30); GLOMERULAR FILTR. RATE CALC > 60 mL/min (>60); GLUCOSE,RANDOM 86 mg/dL (70-110); POTASSIUM 4.2 mmol/L (3.5-5.1); SODIUM SERUM 142 mmol/L (136-145); UREA NITROGEN, BLOOD 12 mg/dL (7-18)
[2017-06-30 10:24] LABS: ALANINE AMINOTRANSFERASE 75 U/L (12-78); ALBUMIN 3.9 g/dL (3.4-5.0); ALKALINE PHOSPHATASE 112 U/L (46-116); ASPARTATE AMINOTRANSFERASE 24 U/L (15-37); BILIRUBIN,TOTAL 0.2 mg/dL (0.1-1.0); TOTAL PROTEIN, SERUM 7.4 g/dL (6.4-8.2)
[2017-06-30 10:52] LABS: LITHIUM < 0.20 mmol/L (0.60-1.20)
[2017-06-30] MEDS ORDERED: IBUPROFEN 800 MG TABLET PO ONE (13:30)
[2017-06-30 17:10] VITALS: BP 134/85
[2017-06-30] MEDS ORDERED: ACETAMINOPHEN 325 MG TABLET PO PRN (19:00)
[2017-07-01 07:02] LABS: CHOL/HDL RATIO 7.3 (4.2-7.3)
[2017-07-01 09:00] VITALS: BP 160/73
[2017-07-01] MEDS: LORazepam 2 MG TABLET PO PRN ×2 (09:01→16:32)
[2017-07-01] MEDS: IBUPROFEN 600 MG TABLET PO PRN (09:01)
[2017-07-01 11:27] VITALS: BP 103/58
[2017-07-01] MEDS: PALIPERIDONE 6 MG ER TABLET PO SCH (16:26)
[2017-07-01] MEDS: HALOPERIDOL 10 MG TABLET PO SCH (16:27)
[2017-07-01 16:32] VITALS: BP 116/64
[2017-07-02] MEDS: HALOPERIDOL 10 MG TABLET PO SCH ×2 (08:07→16:02)
[2017-07-02] MEDS: LITHIUM CARBONATE 300 MG CAPSULE PO SCH (08:07)
[2017-07-02] MEDS: PALIPERIDONE 6 MG ER TABLET PO SCH ×2 (08:07→16:02)
[2017-07-02 08:08] VITALS: BP 126/69
[2017-07-02] MEDS: LORazepam 2 MG TABLET PO PRN ×2 (08:08→16:02)
[2017-07-02] MEDS: IBUPROFEN 600 MG TABLET PO PRN (08:08)
[2017-07-02] MEDS ORDERED: PALIPERIDONE PALMITATE 234 MG/1.5 ML SYRINGE IM SCH (09:00)
[2017-07-02 16:15] VITALS: BP 121/72
[2017-07-03] MEDS: PALIPERIDONE 6 MG ER TABLET PO SCH ×2 (10:17→16:34)
[2017-07-03] MEDS: LITHIUM CARBONATE 300 MG CAPSULE PO SCH (10:17)
[2017-07-03] MEDS: HALOPERIDOL 10 MG TABLET PO SCH ×2 (10:17→16:35)
[2017-07-03 11:06] VITALS: BP 129/79
[2017-07-03] MEDS: LORazepam 2 MG TABLET PO PRN ×2 (11:44→16:34)
[2017-07-03 11:50] VITALS: BP 121/75
[2017-07-03] MEDS: IBUPROFEN 600 MG TABLET PO PRN (11:50)
[2017-07-03 21:20] VITALS: BP 129/81
[2017-07-04] MEDS: PALIPERIDONE 6 MG ER TABLET PO SCH ×2 (09:07→16:17)
[2017-07-04] MEDS: HALOPERIDOL 10 MG TABLET PO SCH ×2 (09:07→16:17)
[2017-07-04] MEDS: LITHIUM CARBONATE 300 MG CAPSULE PO SCH (09:07)
[2017-07-04 09:13] VITALS: BP 128/80
[2017-07-04] MEDS: IBUPROFEN 600 MG TABLET PO PRN (09:13)
[2017-07-04] MEDS: LORazepam 2 MG TABLET PO PRN (14:46)
[2017-07-04 21:18] VITALS: BP 127/66
[2017-07-05] MEDS: HALOPERIDOL 10 MG TABLET PO SCH ×2 (09:16→16:06)
[2017-07-05] MEDS: LITHIUM CARBONATE 300 MG CAPSULE PO SCH (09:16)
[2017-07-05] MEDS: PALIPERIDONE 6 MG ER TABLET PO SCH ×2 (09:16→16:06)
[2017-07-05] MEDS: LORazepam 2 MG TABLET PO PRN ×2 (09:17→16:06)
[2017-07-05] MEDS: IBUPROFEN 600 MG TABLET PO PRN (09:18)
[2017-07-05 09:19] VITALS: BP 108/61
[2017-07-05 17:04] VITALS: BP 122/74
[2017-07-06 00:05] VITALS: BP 136/84
[2017-07-06] MEDS: IBUPROFEN 600 MG TABLET PO PRN ×3 (00:05→17:52)
[2017-07-06] MEDS: LORazepam 2 MG TABLET PO PRN ×3 (00:07→15:57)
[2017-07-06 08:15] VITALS: BP 125/75
[2017-07-06] MEDS: PALIPERIDONE 6 MG ER TABLET PO SCH ×2 (10:00→15:55)
[2017-07-06] MEDS: HALOPERIDOL 10 MG TABLET PO SCH ×2 (10:01→15:55)
[2017-07-06] MEDS: LITHIUM CARBONATE 300 MG CAPSULE PO SCH (10:01)
[2017-07-06] MEDS ORDERED: ONDANSETRON HCL 4 MG TABLET PO PRN (10:15)
[2017-07-06 16:19] VITALS: BP 127/77
[2017-07-06 17:52] VITALS: BP 140/95
[2017-07-06 18:52] VITALS: BP 124/70
[2017-07-07] VITALS: BP 119/77
[2017-07-07] MEDS: ZOLPIDEM TARTRATE 10 MG TABLET PO PRN (00:03)
[2017-07-07] MEDS: LITHIUM CARBONATE 300 MG CAPSULE PO SCH (09:05)
[2017-07-07] MEDS: HALOPERIDOL 10 MG TABLET PO SCH ×2 (09:05→17:16)
[2017-07-07] MEDS: PALIPERIDONE 6 MG ER TABLET PO SCH ×2 (09:06→17:16)
[2017-07-07 10:40] VITALS: BP 131/81
[2017-07-07 11:31] VITALS: BP 136/97
[2017-07-07] MEDS: IBUPROFEN 600 MG TABLET PO PRN (11:31)
[2017-07-07 12:31] VITALS: BP 129/82
[2017-07-07] MEDS: LORazepam 2 MG TABLET PO PRN ×2 (14:37→19:38)
[2017-07-07 16:46] VITALS: BP 104/63
[2017-07-08] MEDS: PALIPERIDONE 6 MG ER TABLET PO SCH ×2 (08:50→17:07)
[2017-07-08 08:51] VITALS: BP 128/81
[2017-07-08] MEDS: IBUPROFEN 600 MG TABLET PO PRN ×2 (08:51→15:21)
[2017-07-08] MEDS: HALOPERIDOL 10 MG TABLET PO SCH ×2 (08:51→17:07)
[2017-07-08] MEDS: LITHIUM CARBONATE 300 MG CAPSULE PO SCH (08:51)
[2017-07-08] MEDS: LORazepam 2 MG TABLET PO PRN ×2 (08:51→15:21)
[2017-07-08 22:32] VITALS: BP 139/88
[2017-07-09 06:25] VITALS: BP 129/84
[2017-07-09] MEDS: IBUPROFEN 600 MG TABLET PO PRN ×2 (06:42→12:55)
[2017-07-09 08:00] VITALS: BP 139/82
[2017-07-09] MEDS: HALOPERIDOL 10 MG TABLET PO SCH ×2 (09:52→16:41)
[2017-07-09] MEDS: PALIPERIDONE 6 MG ER TABLET PO SCH ×2 (09:52→16:41)
[2017-07-09] MEDS: LITHIUM CARBONATE 300 MG CAPSULE PO SCH (09:52)
[2017-07-09] MEDS: LORazepam 2 MG TABLET PO PRN (16:41)
[2017-07-09 16:43] VITALS: BP 133/87
[2017-07-10 00:50] VITALS: BP 132/76
[2017-07-10] MEDS: ZOLPIDEM TARTRATE 10 MG TABLET PO PRN (00:55)
[2017-07-10] MEDS: PALIPERIDONE 6 MG ER TABLET PO SCH ×2 (08:36→16:09)
[2017-07-10] MEDS: LITHIUM CARBONATE 300 MG CAPSULE PO SCH ×2 (08:36→16:09)
[2017-07-10] MEDS: HALOPERIDOL 10 MG TABLET PO SCH ×2 (08:36→16:10)
[2017-07-10 08:38] VITALS: BP 139/91
[2017-07-10] MEDS: LORazepam 2 MG TABLET PO PRN ×2 (08:38→16:09)
[2017-07-10] MEDS: IBUPROFEN 600 MG TABLET PO PRN (08:38)
[2017-07-10 09:28] VITALS: BP 139/91
[2017-07-10 16:30] VITALS: BP 112/69
[2017-07-11] MEDS: ZOLPIDEM TARTRATE 10 MG TABLET PO PRN ×2 (00:07→23:35)
[2017-07-11] MEDS: LITHIUM CARBONATE 300 MG CAPSULE PO SCH ×2 (08:17→16:25)
[2017-07-11] MEDS: PALIPERIDONE 6 MG ER TABLET PO SCH ×2 (08:17→16:25)
[2017-07-11] MEDS: HALOPERIDOL 10 MG TABLET PO SCH ×2 (08:17→16:25)
[2017-07-11] MEDS: IBUPROFEN 600 MG TABLET PO PRN ×2 (08:18→16:27)
[2017-07-11 09:01] VITALS: BP 134/90
[2017-07-11] MEDS: LORazepam 2 MG TABLET PO PRN (09:37)
[2017-07-11 16:25] VITALS: BP 130/77
[2017-07-11 17:25] VITALS: BP 128/72
[2017-07-12 08:15] VITALS: BP 119/77
[2017-07-12] MEDS: LITHIUM CARBONATE 300 MG CAPSULE PO SCH ×2 (08:49→17:13)
[2017-07-12] MEDS: HALOPERIDOL 10 MG TABLET PO SCH ×2 (08:49→17:13)
[2017-07-12] MEDS: LORazepam 2 MG TABLET PO PRN ×3 (08:49→17:49)
[2017-07-12] MEDS: PALIPERIDONE 6 MG ER TABLET PO SCH ×2 (08:49→17:13)
[2017-07-12 13:13] VITALS: BP 135/83
[2017-07-12] MEDS: IBUPROFEN 600 MG TABLET PO PRN (13:15)
[2017-07-12 20:29] VITALS: BP 110/57
[2017-07-13 08:13] VITALS: BP 112/86
[2017-07-13] MEDS: IBUPROFEN 600 MG TABLET PO PRN ×2 (08:15→18:12)
[2017-07-13] MEDS: PALIPERIDONE 6 MG ER TABLET PO SCH ×2 (08:15→18:11)
[2017-07-13] MEDS: LITHIUM CARBONATE 300 MG CAPSULE PO SCH ×2 (08:16→18:11)
[2017-07-13] MEDS: HALOPERIDOL 10 MG TABLET PO SCH ×2 (08:16→18:11)
[2017-07-13] MEDS: LORazepam 2 MG TABLET PO PRN ×3 (08:16→18:11)
[2017-07-13 17:47] VITALS: BP 136/83
[2017-07-14] MEDS: LITHIUM CARBONATE 300 MG CAPSULE PO SCH ×2 (08:24→17:08)
[2017-07-14] MEDS: LORazepam 2 MG TABLET PO PRN (08:24)
[2017-07-14] MEDS: IBUPROFEN 600 MG TABLET PO PRN (08:24)
[2017-07-14] MEDS: HALOPERIDOL 10 MG TABLET PO SCH ×2 (08:25→17:08)
[2017-07-14] MEDS: PALIPERIDONE 6 MG ER TABLET PO SCH ×2 (08:25→17:08)
[2017-07-14 08:40] VITALS: BP 111/69
[2017-07-14 09:45] VITALS: BP 115/78
[2017-07-14 17:38] VITALS: BP 110/68
[2017-07-14] MEDS: ZOLPIDEM TARTRATE 10 MG TABLET PO PRN (21:38)
[2017-07-15] MEDS: HALOPERIDOL 10 MG TABLET PO SCH ×2 (08:46→16:08)
[2017-07-15] MEDS: PALIPERIDONE 6 MG ER TABLET PO SCH ×2 (08:46→16:08)
[2017-07-15] MEDS: LORazepam 2 MG TABLET PO PRN ×2 (08:46→14:13)
[2017-07-15] MEDS: LITHIUM CARBONATE 300 MG CAPSULE PO SCH ×2 (08:46→16:09)
[2017-07-15 08:47] VITALS: BP 164/95
[2017-07-15] MEDS: IBUPROFEN 600 MG TABLET PO PRN (08:50)
[2017-07-15 09:50] VITALS: BP 120/69
[2017-07-15 16:59] VITALS: BP 132/81
[2017-07-16 03:45] VITALS: BP 127/79
[2017-07-16] MEDS: LORazepam 2 MG TABLET PO PRN ×3 (03:48→17:19)
[2017-07-16 08:15] VITALS: BP 154/96
[2017-07-16] MEDS: LITHIUM CARBONATE 300 MG CAPSULE PO SCH ×2 (08:20→17:18)
[2017-07-16] MEDS: HALOPERIDOL 10 MG TABLET PO SCH ×2 (08:20→17:18)
[2017-07-16] MEDS: IBUPROFEN 600 MG TABLET PO PRN (08:20)
[2017-07-16] MEDS: PALIPERIDONE 6 MG ER TABLET PO SCH ×2 (08:20→17:18)
[2017-07-16 09:12] VITALS: BP 149/76
[2017-07-16 16:49] VITALS: BP 129/73
[2017-07-17] MEDS: LORazepam 2 MG TABLET PO PRN ×2 (04:27→16:30)
[2017-07-17 04:28] VITALS: BP 113/74
[2017-07-17] MEDS: HALOPERIDOL 10 MG TABLET PO SCH ×2 (08:24→16:30)
[2017-07-17] MEDS: PALIPERIDONE 6 MG ER TABLET PO SCH ×2 (08:24→16:30)
[2017-07-17] MEDS: LITHIUM CARBONATE 450 MG ER TABLET PO SCH ×2 (08:25→16:30)
[2017-07-17] MEDS: IBUPROFEN 600 MG TABLET PO PRN (11:44)
[2017-07-17 11:48] VITALS: BP 143/99
[2017-07-17 12:44] VITALS: BP 114/67
[2017-07-17] MEDS ORDERED: CloNIDine HCL 0.1 MG TABLET PO PRN (13:00)
[2017-07-17 16:17] VITALS: BP 114/62
[2017-07-18] MEDS: HALOPERIDOL 10 MG TABLET PO SCH ×2 (09:00→16:16)
[2017-07-18] MEDS: PALIPERIDONE 6 MG ER TABLET PO SCH ×2 (09:00→16:16)
[2017-07-18] MEDS: LITHIUM CARBONATE 450 MG ER TABLET PO SCH ×2 (09:00→16:16)
[2017-07-18] MEDS: IBUPROFEN 600 MG TABLET PO PRN (09:01)
[2017-07-18 09:04] VITALS: BP 136/79
[2017-07-18 10:01] VITALS: BP 102/66
[2017-07-18] MEDS ORDERED: BISACODYL 5 MG EC TABLET PO PRN (11:45)
[2017-07-18 16:49] VITALS: BP 116/60
[2017-07-18] MEDS: LORazepam 2 MG TABLET PO PRN (17:10)
[2017-07-19] MEDS: ZOLPIDEM TARTRATE 10 MG TABLET PO PRN (00:35)
[2017-07-19 00:36] VITALS: BP 107/69
[2017-07-19 08:55] VITALS: BP 128/73
[2017-07-19] MEDS: LITHIUM CARBONATE 450 MG ER TABLET PO SCH ×2 (08:55→16:00)
[2017-07-19] MEDS: HALOPERIDOL 10 MG TABLET PO SCH ×2 (08:55→16:00)
[2017-07-19] MEDS: PALIPERIDONE 6 MG ER TABLET PO SCH ×2 (08:55→16:00)
[2017-07-19] MEDS: LORazepam 2 MG TABLET PO PRN ×2 (08:55→16:00)
[2017-07-19] MEDS: IBUPROFEN 600 MG TABLET PO PRN (08:56)
[2017-07-20 01:00] VITALS: BP 109/72
[2017-07-20] MEDS: ZOLPIDEM TARTRATE 10 MG TABLET PO PRN (01:03)
[2017-07-20 08:00] VITALS: BP 104/75
[2017-07-20] MEDS: PALIPERIDONE 6 MG ER TABLET PO SCH ×2 (08:24→16:24)
[2017-07-20] MEDS: LITHIUM CARBONATE 450 MG ER TABLET PO SCH ×2 (08:24→16:24)
[2017-07-20] MEDS: HALOPERIDOL 10 MG TABLET PO SCH ×2 (08:24→16:24)
[2017-07-20] MEDS: LORazepam 2 MG TABLET PO PRN ×2 (10:52→16:26)
[2017-07-20 11:22] VITALS: BP 130/90
[2017-07-20] MEDS: IBUPROFEN 600 MG TABLET PO PRN (11:22)
[2017-07-20 17:19] VITALS: BP 123/78
[2017-07-21] MEDS: LORazepam 2 MG TABLET PO PRN ×2 (05:08→16:50)
[2017-07-21 05:09] VITALS: BP 119/84
[2017-07-21 08:00] VITALS: BP 110/60
[2017-07-21] MEDS: LITHIUM CARBONATE 450 MG ER TABLET PO SCH ×2 (08:21→16:46)
[2017-07-21] MEDS: PALIPERIDONE 6 MG ER TABLET PO SCH ×2 (08:21→16:46)
[2017-07-21] MEDS: HALOPERIDOL 10 MG TABLET PO SCH ×2 (08:22→16:46)
[2017-07-21] MEDS: IBUPROFEN 600 MG TABLET PO PRN (08:24)
[2017-07-21 16:47] VITALS: BP 128/79
[2017-07-22 05:56] VITALS: BP 117/83
[2017-07-22] MEDS: LORazepam 2 MG TABLET PO PRN ×2 (05:56→14:06)
[2017-07-22 09:24] VITALS: BP 109/67
[2017-07-22] MEDS: IBUPROFEN 600 MG TABLET PO PRN (09:24)
[2017-07-22] MEDS: HALOPERIDOL 10 MG TABLET PO SCH ×2 (09:25→16:36)
[2017-07-22] MEDS: LITHIUM CARBONATE 450 MG ER TABLET PO SCH ×2 (09:25→16:36)
[2017-07-22] MEDS: PALIPERIDONE 6 MG ER TABLET PO SCH ×2 (09:25→16:37)
[2017-07-22 17:05] VITALS: BP 107/66
[2017-07-22] MEDS ORDERED: PALIPERIDONE PALMITATE 234 MG/1.5 ML SYRINGE IM SCH (17:15)
[2017-07-23 01:28] VITALS: BP 124/71
[2017-07-23] MEDS: ZOLPIDEM TARTRATE 10 MG TABLET PO PRN (01:29)
[2017-07-23] MEDS: HALOPERIDOL 10 MG TABLET PO SCH ×2 (09:02→16:05)
[2017-07-23] MEDS: LITHIUM CARBONATE 450 MG ER TABLET PO SCH ×2 (09:03→16:05)
[2017-07-23] MEDS: PALIPERIDONE 6 MG ER TABLET PO SCH ×2 (09:03→16:05)
[2017-07-23] MEDS: LORazepam 2 MG TABLET PO PRN (09:04)
[2017-07-23 09:26] VITALS: BP 146/97
[2017-07-23] MEDS ORDERED: LITH300T PO (11:18)
[2017-07-23] MEDS: IBUPROFEN 600 MG TABLET PO PRN (12:28)
[2017-07-23 12:48] VITALS: BP 132/95
[2017-07-23 13:50] VITALS: BP 158/97
== END 2017-07-23 16:45 | disposition home or self-care (01) | DRG 885 ==
LOC: EMS 09:00 → 3EI 11:37 → 3EX 11:37 → 3EI 07-22 14:52
PROVIDERS: ADMIT Psychiatry & Neurology Psychiatry; ATTEND Psychiatry & Neurology Psychiatry
DX: F20.1 Disorganized schizophrenia (principal); Z91.14 Patient's other noncompliance with medication regimen; E78.1 Pure hyperglyceridemia; E78.5 Hyperlipidemia, unspecified; F12.10 Cannabis abuse, uncomplicated; F17.200 Nicotine dependence, unspecified, uncomplicated; H55.09 Other forms of nystagmus; I10 Essential (primary) hypertension; J45.909 Unspecified asthma, uncomplicated; K08.89 Other specified disorders of teeth and supporting structures; K29.70 Gastritis, unspecified, without bleeding; K59.00 Constipation, unspecified; Z71.6 Tobacco abuse counseling
CPT/HCPCS: 87081; 93005; 99291; G0480; Q0162

== ENCOUNTER 2020-04-12 19:56 | Inpatient (IN) | payer MEDICAID, OTHER ==
[~2020-04-12] VITALS: Ht 167.6 cm; Wt 92.6 kg
[~2020-04-12 19:56] MED LIST changes: +ALBU8HFA IH; +BENZ2TAB10 PO; +FLUT1AER IH; +ISON300T17 PO; +LAMO25TA25 PO; -LITH300C3 PO; +LITH300T PO; -OMEG-135 PO; +OXYB5XL PO; -PALI6 PO; +PALI6TAB15 PO; +PYRI50 PO
[2020-04-12] MEDS ORDERED: TRAZ-252 PO (20:12)
[2020-04-12] MEDS ORDERED: AMLO2.5T96 PO (20:12)
[2020-04-12] MEDS ORDERED: VALP250C48 PO (20:12)
[2020-04-12] MEDS ORDERED: BENZ1TAB10 PO (20:12)
[2020-04-12] MEDS ORDERED: PANT-31 PO (20:12)
[2020-04-12 20:31] LABS: COVID AG,FIA SOURCE NASOPHARYNGEAL
[2020-04-12 20:31] LABS: GLUCOSE,POINT OF CARE 86 MG/DL (70-110)
[2020-04-12 20:31] LABS: AMPHET/METH SCREEN,URINE POSITIVE (NEGATIVE); BARBITURATE SCREEN, URINE NEGATIVE (NEGATIVE); BENZODIAZEPINES SCREEN,URINE NEGATIVE (NEGATIVE); CANNABINOID SCREEN,URINE POSITIVE (NEGATIVE); COCAINE SCREEN,URINE NEGATIVE (NEGATIVE); METHADONE SCREEN, URINE NEGATIVE (NEGATIVE); OPIATE SCREEN,URINE NEGATIVE (NEGATIVE)
[2020-04-12 20:42] LABS: PHENCYCLIDINE SCREEN,URINE NEGATIVE (NEGATIVE)
[2020-04-12 21:10] LABS: BASOPHILS % (AUTO) 0.7 % (0.0-2.0); EOSINOPHILS % (AUTO) 0.5 % (1.0-6.0); HEMATOCRIT 39.2 % (41-53); HEMOGLOBIN 13.5 g/dL (13.5-17.5); LYMPHOCYTES # (AUTO) 1.5 K/uL (1.0-4.8); LYMPHOCYTES % (AUTO) 16.1 % (22.0-44.0); MEAN CORPUSCULAR HEMOGLOBIN 30.4 pg (26.0-34.0); MEAN CORPUSCULAR HGB CONC 34.5 G/dL (31.0-37.0); MEAN CORPUSCULAR VOLUME 88 fL (80-100); MONOCYTES # (AUTO) 0.7 K/uL (0.1-1.0); MONOCYTES % (AUTO) 7.8 % (2.0-9.0); NEUTROPHILS # (AUTO) 6.9 K/uL (1.8-7.7); NEUTROPHILS % (AUTO) 74.9 % (40.0-70.0); PLATELET COUNT (AUTO) 252 K/uL (150-450); RED BLOOD CELL COUNT(AUTO) 4.46 MIL/uL (4.50-5.90)
[2020-04-12 21:19] LABS: ANION GAP 7 mmol/L (8-16); CALCIUM, TOTAL 8.9 mg/dL (8.8-10.5); CARBON DIOXIDE 25 mmol/L (22-29); CHLORIDE 106 mmol/L (98-107); CREATININE 1.29 mg/dL (0.60-1.30); GLOMERULAR FILTR. RATE CALC > 60 mL/min (>60); GLUCOSE,RANDOM 104 mg/dL (70-110); POTASSIUM 4.2 mmol/L (3.5-5.1); SODIUM SERUM 138 mmol/L (136-145); UREA NITROGEN, BLOOD 14 mg/dL (7-18)
[2020-04-12 21:25] LABS: ALANINE AMINOTRANSFERASE 37 U/L (12-78); ALBUMIN 3.8 g/dL (3.4-5.0); ALKALINE PHOSPHATASE 84 U/L (46-116); ASPARTATE AMINOTRANSFERASE 15 U/L (15-37); BILIRUBIN,TOTAL 0.2 mg/dL (0.1-1.0); TOTAL PROTEIN, SERUM 7.5 g/dL (6.4-8.2); VALPROIC ACID 78 mcg/mL (50-100)
[2020-04-12 21:27] LABS: SALICYLATE 4.2 mg/dL (2.8-20.0)
[2020-04-12 21:36] LABS: ACETAMINOPHEN < 2 mcg/mL (10-30)
[2020-04-12 21:49] LABS: LITHIUM < 0.20 mmol/L (0.60-1.20)
[2020-04-12] MEDS ORDERED: ZOLPIDEM TARTRATE 10 MG TABLET PO PRN (22:30)
[2020-04-13 00:28] LABS: VALPROIC ACID 64 mcg/mL (50-100)
[2020-04-13 02:44] VITALS: BP 149/97
[2020-04-13 03:07] LABS: LITHIUM < 0.20 mmol/L (0.60-1.20)
[2020-04-13 03:12] LABS: SALICYLATE 4.7 mg/dL (2.8-20.0)
[2020-04-13 04:42] LABS: HDL CHOLESTEROL 30 mg/dL (40-60); TRIGLYCERIDES 108 mg/dL (15-150)
[2020-04-13] MEDS ORDERED: PNEUMOCOCCAL VACCINE POLYVALENT 0.5 ML VIAL [PPSV23] IM ONE (05:45)
[2020-04-13] MEDS ORDERED: INFLUENZA VIRUS VACCINE QVS 2020-21 (6MO+)/PF 60 MCG/0.5 ML SYRINGE IM ONE (05:45)
[2020-04-13 06:10] LABS: CHOL/HDL RATIO 5.2 (4.2-7.3); CHOLESTEROL 157 mg/dL (131-200); LDL CHOL (CALC.) 105 mg/dL (0-130)
[2020-04-13 08:45] VITALS: BP 154/99
[2020-04-13] MEDS: HALOPERIDOL 5 MG TABLET PO PRN (13:19)
[2020-04-13] MEDS: LORazepam 2 MG TABLET PO PRN (13:19)
[2020-04-13] MEDS: VALPROIC ACID 250 MG CAPSULE PO SCH (16:15)
[2020-04-13] MEDS: LamoTRIgine 25 MG TABLET PO SCH (16:16)
[2020-04-13] MEDS: BENZTROPINE MESYLATE 1 MG TABLET PO SCH (16:16)
[2020-04-13 16:17] VITALS: BP 140/88
[2020-04-13] MEDS: PALIPERIDONE 6 MG ER TABLET PO SCH (20:21)
[2020-04-13] MEDS: TraZODone HCL 50 MG TABLET PO SCH (20:21)
[2020-04-14 08:00] VITALS: BP 133/91
[2020-04-14] MEDS: HALOPERIDOL 5 MG TABLET PO PRN (08:05)
[2020-04-14] MEDS: VALPROIC ACID 250 MG CAPSULE PO SCH ×2 (08:05→16:07)
[2020-04-14] MEDS: PALIPERIDONE 6 MG ER TABLET PO SCH ×2 (08:05→20:04)
[2020-04-14] MEDS: LORazepam 2 MG TABLET PO PRN (08:05)
[2020-04-14] MEDS: PANTOPRAZOLE SODIUM 40 MG DR TABLET PO SCH (08:05)
[2020-04-14] MEDS: BENZTROPINE MESYLATE 1 MG TABLET PO SCH ×2 (08:05→16:07)
[2020-04-14] MEDS: AmLODIPine BESYLATE 2.5 MG TABLET PO SCH (08:05)
[2020-04-14] MEDS: LamoTRIgine 25 MG TABLET PO SCH ×2 (08:05→16:07)
[2020-04-14 16:06] VITALS: BP 125/80
[2020-04-14] MEDS: TraZODone HCL 50 MG TABLET PO SCH (20:03)
[2020-04-15 08:00] VITALS: BP 139/72
[2020-04-15] MEDS: PANTOPRAZOLE SODIUM 40 MG DR TABLET PO SCH (08:02)
[2020-04-15] MEDS: VALPROIC ACID 250 MG CAPSULE PO SCH ×2 (08:03→16:18)
[2020-04-15] MEDS: LamoTRIgine 25 MG TABLET PO SCH ×2 (08:03→16:18)
[2020-04-15] MEDS: BENZTROPINE MESYLATE 1 MG TABLET PO SCH ×2 (08:03→16:18)
[2020-04-15] MEDS: PALIPERIDONE 6 MG ER TABLET PO SCH ×2 (08:03→19:59)
[2020-04-15] MEDS: AmLODIPine BESYLATE 2.5 MG TABLET PO SCH (08:03)
[2020-04-15 16:00] VITALS: BP 128/82
[2020-04-15] MEDS: TraZODone HCL 50 MG TABLET PO SCH (20:00)
[2020-04-16 08:00] VITALS: BP 140/98
[2020-04-16] MEDS: LamoTRIgine 25 MG TABLET PO SCH ×2 (08:29→17:26)
[2020-04-16] MEDS: PANTOPRAZOLE SODIUM 40 MG DR TABLET PO SCH (08:29)
[2020-04-16] MEDS: BENZTROPINE MESYLATE 1 MG TABLET PO SCH ×2 (08:29→17:26)
[2020-04-16] MEDS: PALIPERIDONE 6 MG ER TABLET PO SCH ×2 (08:29→20:25)
[2020-04-16] MEDS: VALPROIC ACID 250 MG CAPSULE PO SCH ×2 (08:29→17:26)
[2020-04-16] MEDS: AmLODIPine BESYLATE 2.5 MG TABLET PO SCH (08:30)
[2020-04-16] MEDS: LORazepam 2 MG TABLET PO PRN (11:22)
[2020-04-16 16:50] VITALS: BP 104/62
[2020-04-16] MEDS: TraZODone HCL 50 MG TABLET PO SCH (20:25)
[2020-04-17] MEDS: PALIPERIDONE 6 MG ER TABLET PO SCH (08:27)
[2020-04-17] MEDS: LamoTRIgine 25 MG TABLET PO SCH (08:27)
[2020-04-17] MEDS: VALPROIC ACID 250 MG CAPSULE PO SCH (08:27)
[2020-04-17] MEDS: PANTOPRAZOLE SODIUM 40 MG DR TABLET PO SCH (08:27)
[2020-04-17] MEDS: AmLODIPine BESYLATE 2.5 MG TABLET PO SCH (08:27)
[2020-04-17] MEDS: LORazepam 2 MG TABLET PO PRN (08:27)
[2020-04-17] MEDS: BENZTROPINE MESYLATE 1 MG TABLET PO SCH (08:28)
[2020-04-17 09:55] VITALS: BP 142/90
[2020-04-17] MEDS ORDERED: VALP250C48 PO (12:40)
[2020-04-17] MEDS ORDERED: BENZ1TAB10 PO (14:27)
[2020-05-11] MEDS ORDERED: PALIPERIDONE PALMITATE 234 MG/1.5 ML SYRINGE IM SCH (09:00)
== END 2020-04-17 14:05 | disposition home or self-care (01) | DRG 750 ==
LOC: EMS 20:01 → 3EC 22:23
PROVIDERS: ADMIT Psychiatry & Neurology Psychiatry; ATTEND Psychiatry & Neurology Psychiatry
DX: F20.0 Paranoid schizophrenia (principal); E78.5 Hyperlipidemia, unspecified; F32.9 Major depressive disorder, single episode, unspecified; F41.9 Anxiety disorder, unspecified; T22.012A Burn of unspecified degree of left forearm, initial encounter; K59.00 Constipation, unspecified; G47.00 Insomnia, unspecified; F19.10 Other psychoactive substance abuse, uncomplicated; Z20.828 Contact with and (suspected) exposure to other viral communicable diseases; X08.8XXA Exposure to other specified smoke, fire and flames, initial encounter; Y93.89 Activity, other specified; Y92.89 Other specified places as the place of occurrence of the external cause; Y99.8 Other external cause status; Z79.899 Other long term (current) drug therapy; Z88.8 Allergy status to other drugs, medicaments and biological substances; Z28.21 Immunization not carried out because of patient refusal
CPT/HCPCS: 83036; 87426; 93005; G0480; G0481